=== PATIENT | female | born 1935 | race Caucasian/White ===

== ENCOUNTER 2023-02-22 16:46 | Inpatient (IN) | payer MEDICARE, OTHER ==
[~2023-02-22] VITALS: Ht 162.6 cm; Wt 78.9 kg
[2023-02-22] MEDS ORDERED: HYDRALAZINE (17:10)
[2023-02-22] MEDS ORDERED: NAMENDA (17:10)
[2023-02-22] MEDS ORDERED: LOTREL (17:10)
[2023-02-22] MEDS ORDERED: COREG (17:10)
[2023-02-22] MEDS ORDERED: [UNRECOGNIZED DRUG - CODE] (17:10)
[2023-02-22] MEDS ORDERED: OLME5TAB3 (17:10)
[2023-02-22] MEDS ORDERED: JANUVIA (17:10)
[2023-02-22] MEDS ORDERED: IV NORMAL SALINE 500 ML BAG IV ONE (17:15)
[2023-02-22 17:20] LABS: BASOPHILS # (AUTO) 0.2 K/UL (0.0-0.2); BASOPHILS % (AUTO) 2.3 % (0.0-2.0); EOSINOPHILS % (AUTO) 0.1 % (0.0-7.0); HEMATOCRIT 33.7 % (31.2-41.9); HEMOGLOBIN 11.3 g/dL (10.9-14.3); LYMPHOCYTES # (AUTO) 1.3 K/uL (0.8-4.8); MEAN CORPUSCULAR HEMOGLOBIN 27.4 uug (24.7-32.8); MEAN CORPUSCULAR HGB CONC 33 g/dL (32.3-35.6); MEAN CORPUSCULAR VOLUME 81.9 fL (75.5-95.3); MONOCYTES # (AUTO) 1.4 K/uL (0.1-1.30); NEUTROPHILS # (AUTO) 5.8 K/uL (1.8-8.9); NEUTROPHILS % (AUTO) 66.9 % (38.5-71.5); PLATELET COUNT (AUTO) 381 K/uL (179-408); RED BLOOD CELL COUNT(AUTO) 4.11 MIL/uL (3.63-4.92); RED CELL DISTRIBUTION WIDTH 16.3 % (12.3-17.7); WHITE BLOOD COUNT (AUTO) 8.6 K/uL (3.8-11.8)
[2023-02-22 17:24] LABS: DIFFERENTIAL COMMENT 1
[2023-02-22 17:25] LABS: LYMPHOCYTES % (AUTO) 16.7 % (20.5-51.5)
[2023-02-22 17:31] LABS: CALCIUM 8.7 mg/dL (8.5-10.1); CARBON DIOXIDE 19 mmol/L (21-32); CHLORIDE 88 mmol/L (98-107); CREATININE 4.8 mg/dL (0.6-1.3); GLUCOSE 194 mg/dL (74-106); POTASSIUM 4.5 mmol/L (3.5-5.1); SODIUM SERUM 129 mmol/L (136-145); UREA NITROGEN, BLOOD 64 mg/dL (7-18)
[2023-02-22 17:37] LABS: ALANINE AMINOTRANSFERASE 16 U/L (14-59); ALBUMIN 3.9 g/dL (3.4-5.0); ALKALINE PHOSPHATASE 69 U/L (50-136); ASPARTATE AMINOTRANSFERASE 13 U/L (15-37); BILIRUBIN,DIRECT 0.2 mg/dL (0.0-0.2); BILIRUBIN,TOTAL 0.4 mg/dL (0.2-1.0); TOTAL PROTEIN, SERUM 8.1 g/dL (6.4-8.2)
[2023-02-22] MEDS ORDERED: IV NS 1000 ML 1,000 ML IV ONE (17:45)
[2023-02-22 21:43] VITALS: BP 119/48; TEMP 97.9; O2SAT 96
[2023-02-22] MEDS ORDERED: ONDANSETRON 4 MG/2 ML VIAL IV PRN (22:00)
[2023-02-22] MEDS ORDERED: MORPHINE SULFATE 2 MG/1 ML DISP.SYRIN IV PRN (22:00)
[2023-02-22] MEDS ORDERED: DEXTROSE 50% 50 ML DISP.SYRIN IV PRN (22:00)
[2023-02-22] MEDS ORDERED: ACETAMINOPHEN 650 MG SUPP.RECT RC PRN (22:00)
[2023-02-22] MEDS ORDERED: MAGNESIUM HYDROXIDE 30 ML LIQUID UDC PO PRN (22:00)
[2023-02-22] MEDS: BLOOD SUGAR DIAGNOSTIC 1 EACH STRIP VI SCH (22:48)
[2023-02-22] MEDS: ENOXAPARIN SODIUM 30 MG/0.3 ML DISP.SYRIN SUBCUT SCH (22:53)
[2023-02-22] MEDS: IV NS 1000 ML 1,000 ML IV PRN (22:55)
[2023-02-23 04:40] VITALS: BP 114/49; TEMP 98; O2SAT 94
[2023-02-23] MEDS: BLOOD SUGAR DIAGNOSTIC 1 EACH STRIP VI SCH ×3 (06:10→17:10)
[2023-02-23] MEDS: INSULIN REGULAR, HUMAN 300 UNIT/3 ML VIAL SQ PRN ×3 (06:17→17:11)
[2023-02-23 07:14] LABS: BASOPHILS % (AUTO) 0.1 % (0.0-2.0); HEMATOCRIT 28.5 % (31.2-41.9); HEMOGLOBIN 9.8 g/dL (10.9-14.3); LYMPHOCYTES # (AUTO) 1.3 K/uL (0.8-4.8); LYMPHOCYTES % (AUTO) 15.3 % (20.5-51.5); MEAN CORPUSCULAR HEMOGLOBIN 28.3 uug (24.7-32.8); MEAN CORPUSCULAR HGB CONC 34 g/dL (32.3-35.6); MEAN CORPUSCULAR VOLUME 82.1 fL (75.5-95.3); MONOCYTES # (AUTO) 1.5 K/uL (0.1-1.30); MONOCYTES % (AUTO) 17.1 % (0.0-11.0); NEUTROPHILS % (AUTO) 67.5 % (38.5-71.5); PLATELET COUNT (AUTO) 308 K/uL (179-408); RED BLOOD CELL COUNT(AUTO) 3.47 MIL/uL (3.63-4.92); RED CELL DISTRIBUTION WIDTH 16.3 % (12.3-17.7); WHITE BLOOD COUNT (AUTO) 8.8 K/uL (3.8-11.8)
[2023-02-23 07:20] LABS: CALCIUM 7.6 mg/dL (8.5-10.1); CARBON DIOXIDE 20 mmol/L (21-32); CHLORIDE 94 mmol/L (98-107); CHOLESTEROL 99 mg/dL (<200); CREATININE 4.6 mg/dL (0.6-1.3); GLUCOSE 167 mg/dL (74-106); HDL CHOLESTEROL 39 mg/dL (40-60); MAGNESIUM 1.8 mg/dL (1.8-2.4); POTASSIUM 4.4 mmol/L (3.5-5.1); SODIUM SERUM 133 mmol/L (136-145); TRIGLYCERIDES 166 MG/DL (30-150); UREA NITROGEN, BLOOD 78 mg/dL (7-18)
[2023-02-23 07:23] LABS: DIFFERENTIAL COMMENT 1
[2023-02-23] MEDS: PANTOPRAZOLE SODIUM 40 MG VIAL IV SCH (08:36)
[2023-02-23] MEDS ORDERED: DIATR MEGLU/DIATRIZOATE SODIUM 30 ML BOTTLE ONE (09:12)
[2023-02-23 11:43] VITALS: BP 117/51; TEMP 98.6; O2SAT 95
[2023-02-23 13:58] LABS: BAND % (MANUAL) 3 % (0-10); LYMPHOCYTES % (MANUAL) 17 % (20-40); MONOCYTES % (MANUAL) 18 % (2-10); NEUTROPHILS % (MANUAL) 62 % (42-75); PLATELET ESTIMATE ADEQUATE
[2023-02-23 13:59] LABS: ANISOCYTOSIS 1+
[2023-02-23] MEDS: IV NS 1000 ML 1,000 ML IV PRN (14:05)
[2023-02-23] MEDS ORDERED: CARV6.252 PO (15:26)
[2023-02-23] MEDS ORDERED: MEMA5TAB PO (15:26)
[2023-02-23] MEDS ORDERED: SITA100T PO (15:26)
[2023-02-23] MEDS ORDERED: HYDR-894 PO (15:26)
[2023-02-23] MEDS ORDERED: OLME40TA12 PO (15:26)
[2023-02-23 16:00] VITALS: BP 107/53; TEMP 97.5; O2SAT 94
[2023-02-23 20:00] VITALS: BP 116/46; TEMP 98.9; O2SAT 93
[2023-02-23] MEDS: ENOXAPARIN SODIUM 30 MG/0.3 ML DISP.SYRIN SUBCUT SCH (20:34)
[2023-02-24] MEDS: BLOOD SUGAR DIAGNOSTIC 1 EACH STRIP VI SCH ×5 (02:07→23:29)
[2023-02-24] MEDS: INSULIN REGULAR, HUMAN 300 UNIT/3 ML VIAL SQ PRN ×3 (02:08→17:40)
[2023-02-24 04:00] VITALS: BP 138/61; TEMP 98.4; O2SAT 93
[2023-02-24 07:06] LABS: BASOPHILS % (AUTO) 0.1 % (0.0-2.0); HEMATOCRIT 28.9 % (31.2-41.9); HEMOGLOBIN 9.7 g/dL (10.9-14.3); LYMPHOCYTES # (AUTO) 1.1 K/uL (0.8-4.8); LYMPHOCYTES % (AUTO) 13.9 % (20.5-51.5); MEAN CORPUSCULAR HGB CONC 34 g/dL (32.3-35.6); MEAN CORPUSCULAR VOLUME 83.3 fL (75.5-95.3); MONOCYTES # (AUTO) 1.1 K/uL (0.1-1.30); MONOCYTES % (AUTO) 13.9 % (0.0-11.0); NEUTROPHILS # (AUTO) 5.9 K/uL (1.8-8.9); NEUTROPHILS % (AUTO) 72.1 % (38.5-71.5); PLATELET COUNT (AUTO) 334 K/uL (179-408); RED BLOOD CELL COUNT(AUTO) 3.47 MIL/uL (3.63-4.92); RED CELL DISTRIBUTION WIDTH 16.8 % (12.3-17.7); WHITE BLOOD COUNT (AUTO) 8.2 K/uL (3.8-11.8)
[2023-02-24 07:15] LABS: DIFFERENTIAL COMMENT 1
[2023-02-24 07:32] LABS: CALCIUM 8.5 mg/dL (8.5-10.1); CARBON DIOXIDE 18 mmol/L (21-32); CHLORIDE 101 mmol/L (98-107); CREATININE 3.6 mg/dL (0.6-1.3); GLUCOSE 176 mg/dL (74-106); MAGNESIUM 2.1 mg/dL (1.8-2.4); PHOSPHOROUS 7.2 mg/dL (2.5-4.9); POTASSIUM 3.9 mmol/L (3.5-5.1); SODIUM SERUM 139 mmol/L (136-145)
[2023-02-24 07:34] LABS: UREA NITROGEN, BLOOD 91 mg/dL (7-18)
[2023-02-24] MEDS: IV NS 1000 ML 1,000 ML IV PRN (08:12)
[2023-02-24] MEDS: PANTOPRAZOLE SODIUM 40 MG VIAL IV SCH (09:29)
[2023-02-24 11:38] VITALS: BP 94/55; TEMP 97.9; O2SAT 97
[2023-02-24 16:12] VITALS: BP 132/45; TEMP 99.4; O2SAT 96
[2023-02-24] MEDS: ACETAMINOPHEN 325 MG TABLET PO PRN (18:48)
[2023-02-24] MEDS: ENOXAPARIN SODIUM 30 MG/0.3 ML DISP.SYRIN SUBCUT SCH (21:37)
[2023-02-24] MEDS: SIMETHICONE 80 MG TAB.CHEW PO SCH (21:58)
[2023-02-24 22:20] VITALS: BP 151/57; TEMP 97.9; O2SAT 96
[2023-02-25 04:00] VITALS: BP 152/68; TEMP 98; O2SAT 95
[2023-02-25 06:28] LABS: BASOPHILS % (AUTO) 0.1 % (0.0-2.0); HEMATOCRIT 25.5 % (31.2-41.9); HEMOGLOBIN 8.7 g/dL (10.9-14.3); LYMPHOCYTES # (AUTO) 0.9 K/uL (0.8-4.8); LYMPHOCYTES % (AUTO) 15.6 % (20.5-51.5); MEAN CORPUSCULAR HEMOGLOBIN 28.2 uug (24.7-32.8); MEAN CORPUSCULAR HGB CONC 34 g/dL (32.3-35.6); MEAN CORPUSCULAR VOLUME 82.6 fL (75.5-95.3); MONOCYTES # (AUTO) 0.8 K/uL (0.1-1.30); MONOCYTES % (AUTO) 14.1 % (0.0-11.0); NEUTROPHILS # (AUTO) 4.2 K/uL (1.8-8.9); NEUTROPHILS % (AUTO) 70.2 % (38.5-71.5); PLATELET COUNT (AUTO) 315 K/uL (179-408); RED BLOOD CELL COUNT(AUTO) 3.09 MIL/uL (3.63-4.92); RED CELL DISTRIBUTION WIDTH 16.3 % (12.3-17.7)
[2023-02-25] MEDS: BLOOD SUGAR DIAGNOSTIC 1 EACH STRIP VI SCH ×3 (06:34→18:22)
[2023-02-25 06:46] LABS: DIFFERENTIAL COMMENT 1
[2023-02-25 06:50] LABS: ALANINE AMINOTRANSFERASE 7 U/L (14-59); ALBUMIN 2.8 g/dL (3.4-5.0); ALKALINE PHOSPHATASE 58 U/L (50-136); ASPARTATE AMINOTRANSFERASE < 5 U/L (15-37); BILIRUBIN,TOTAL 0.7 mg/dL (0.2-1.0); CALCIUM 8.9 mg/dL (8.5-10.1); CARBON DIOXIDE 18 mmol/L (21-32); CHLORIDE 100 mmol/L (98-107); CREATINE KINASE, TOTAL 26 U/L (26-192); CREATININE 2.3 mg/dL (0.6-1.3); GLUCOSE 124 mg/dL (74-106); MAGNESIUM 1.9 mg/dL (1.8-2.4); PHOSPHOROUS 5.3 mg/dL (2.5-4.9); POTASSIUM 3.5 mmol/L (3.5-5.1); SODIUM SERUM 133 mmol/L (136-145); TOTAL PROTEIN, SERUM 6.1 g/dL (6.4-8.2); UREA NITROGEN, BLOOD 78 mg/dL (7-18)
[2023-02-25] MEDS: SIMETHICONE 80 MG TAB.CHEW PO SCH ×4 (08:44→20:22)
[2023-02-25] MEDS: PANTOPRAZOLE SODIUM 40 MG VIAL IV SCH (08:45)
[2023-02-25 11:31] VITALS: BP 159/60; TEMP 98.8; O2SAT 96
[2023-02-25] MEDS: INSULIN REGULAR, HUMAN 300 UNIT/3 ML VIAL SQ PRN (12:07)
[2023-02-25] MEDS: IV NS 1000 ML 1,000 ML IV PRN (14:31)
[2023-02-25] MEDS: ACETAMINOPHEN 325 MG TABLET PO PRN (14:50)
[2023-02-25 16:00] VITALS: BP 186/67; TEMP 98.8; O2SAT 96
[2023-02-25] MEDS ORDERED: hydrALAZINE HCL 10 MG TABLET PO SCH (16:30)
[2023-02-25 20:00] VITALS: BP 154/64; TEMP 98.2; O2SAT 96
[2023-02-25] MEDS: ENOXAPARIN SODIUM 30 MG/0.3 ML DISP.SYRIN SUBCUT SCH (20:22)
[2023-02-26] MEDS: BLOOD SUGAR DIAGNOSTIC 1 EACH STRIP VI SCH ×5 (01:38→23:50)
[2023-02-26 04:00] VITALS: BP 146/60; TEMP 98.5; O2SAT 97
[2023-02-26] MEDS: PANTOPRAZOLE SODIUM 40 MG TABLET.DR PO SCH (06:31)
[2023-02-26] MEDS: IV NS 1000 ML 1,000 ML IV PRN ×2 (06:31→22:31)
[2023-02-26 06:37] LABS: BASOPHILS % (AUTO) 0.1 % (0.0-2.0); HEMATOCRIT 25.4 % (31.2-41.9); HEMOGLOBIN 8.7 g/dL (10.9-14.3); LYMPHOCYTES % (AUTO) 18.9 % (20.5-51.5); MEAN CORPUSCULAR HEMOGLOBIN 28.4 uug (24.7-32.8); MEAN CORPUSCULAR HGB CONC 34 g/dL (32.3-35.6); MEAN CORPUSCULAR VOLUME 83.1 fL (75.5-95.3); MONOCYTES # (AUTO) 0.7 K/uL (0.1-1.30); MONOCYTES % (AUTO) 13.1 % (0.0-11.0); NEUTROPHILS # (AUTO) 3.6 K/uL (1.8-8.9); NEUTROPHILS % (AUTO) 67.9 % (38.5-71.5); PLATELET COUNT (AUTO) 287 K/uL (179-408); RED BLOOD CELL COUNT(AUTO) 3.05 MIL/uL (3.63-4.92); RED CELL DISTRIBUTION WIDTH 16.5 % (12.3-17.7); WHITE BLOOD COUNT (AUTO) 5.3 K/uL (3.8-11.8)
[2023-02-26 06:52] LABS: DIFFERENTIAL COMMENT 1
[2023-02-26 07:02] LABS: CALCIUM 8.6 mg/dL (8.5-10.1); CARBON DIOXIDE 21 mmol/L (21-32); CHLORIDE 101 mmol/L (98-107); CREATININE 1.7 mg/dL (0.6-1.3); GLUCOSE 118 mg/dL (74-106); MAGNESIUM 1.7 mg/dL (1.8-2.4); PHOSPHOROUS 3.7 mg/dL (2.5-4.9); POTASSIUM 3.3 mmol/L (3.5-5.1); SODIUM SERUM 132 mmol/L (136-145); UREA NITROGEN, BLOOD 57 mg/dL (7-18)
[2023-02-26] MEDS: SIMETHICONE 80 MG TAB.CHEW PO SCH ×4 (09:16→20:49)
[2023-02-26] MEDS: METOCLOPRAMIDE HCL 10 MG/2 ML VIAL IV SCH ×3 (10:11→21:20)
[2023-02-26] MEDS: INSULIN REGULAR, HUMAN 300 UNIT/3 ML VIAL SQ PRN ×2 (11:44→17:05)
[2023-02-26 12:00] VITALS: BP 145/58; TEMP 98.1; O2SAT 99
[2023-02-26] MEDS ORDERED: MAGNESIUM OXIDE 400 MG TABLET PO ONE (14:15)
[2023-02-26] MEDS ORDERED: POTASSIUM CHLORIDE 10 MEQ TAB.PRT.SR PO ONE (14:30)
[2023-02-26 16:07] VITALS: BP 159/67; TEMP 97.6; O2SAT 98
[2023-02-26 20:00] VITALS: BP 160/57; TEMP 98; O2SAT 98
[2023-02-26] MEDS: ENOXAPARIN SODIUM 30 MG/0.3 ML DISP.SYRIN SUBCUT SCH (20:51)
[2023-02-27 04:00] VITALS: BP 158/54; TEMP 98.5; O2SAT 96
[2023-02-27] MEDS: METOCLOPRAMIDE HCL 10 MG/2 ML VIAL IV SCH ×2 (05:22→14:50)
[2023-02-27] MEDS: BLOOD SUGAR DIAGNOSTIC 1 EACH STRIP VI SCH ×2 (05:29→12:22)
[2023-02-27] MEDS: PANTOPRAZOLE SODIUM 40 MG TABLET.DR PO SCH (06:14)
[2023-02-27 07:06] LABS: PTH, INTACT 53 pg/mL (15-65)
[2023-02-27] MEDS ORDERED: MEMANTINE HCL 5 MG TABLET PO SCH (09:00)
[2023-02-27] MEDS ORDERED: CARVEDILOL 6.25 MG TABLET PO SCH (09:00)
[2023-02-27] MEDS ORDERED: hydrALAZINE HCL 25 MG TABLET PO SCH (09:00)
[2023-02-27] MEDS: SIMETHICONE 80 MG TAB.CHEW PO SCH ×3 (09:15→16:30)
[2023-02-27 09:47] LABS: BASOPHILS % (AUTO) 0.1 % (0.0-2.0); HEMATOCRIT 26.2 % (31.2-41.9); HEMOGLOBIN 8.8 g/dL (10.9-14.3); LYMPHOCYTES # (AUTO) 0.9 K/uL (0.8-4.8); LYMPHOCYTES % (AUTO) 20.7 % (20.5-51.5); MEAN CORPUSCULAR HEMOGLOBIN 27.8 uug (24.7-32.8); MEAN CORPUSCULAR HGB CONC 34 g/dL (32.3-35.6); MEAN CORPUSCULAR VOLUME 82.9 fL (75.5-95.3); MONOCYTES # (AUTO) 0.5 K/uL (0.1-1.30); MONOCYTES % (AUTO) 11.3 % (0.0-11.0); NEUTROPHILS # (AUTO) 2.9 K/uL (1.8-8.9); NEUTROPHILS % (AUTO) 67.9 % (38.5-71.5); PLATELET COUNT (AUTO) 315 K/uL (179-408); RED BLOOD CELL COUNT(AUTO) 3.16 MIL/uL (3.63-4.92); RED CELL DISTRIBUTION WIDTH 16.2 % (12.3-17.7); WHITE BLOOD COUNT (AUTO) 4.3 K/uL (3.8-11.8)
[2023-02-27 09:51] LABS: DIFFERENTIAL COMMENT 1
[2023-02-27 09:55] LABS: CALCIUM 8.6 mg/dL (8.5-10.1); CARBON DIOXIDE 22 mmol/L (21-32); CHLORIDE 101 mmol/L (98-107); CREATININE 1.3 mg/dL (0.6-1.3); GLUCOSE 127 mg/dL (74-106); POTASSIUM 3.2 mmol/L (3.5-5.1); SODIUM SERUM 133 mmol/L (136-145); UREA NITROGEN, BLOOD 37 mg/dL (7-18)
[2023-02-27 10:37] VITALS: BP 139/52; O2SAT 95
[2023-02-27] MEDS ORDERED: METO-295 PO (10:43)
[2023-02-27 11:55] VITALS: BP_SYST 119; BP_SYST 139; BP_DIAS 52; BP_DIAS 56; TEMP 98.2; O2SAT 97
[2023-02-27 12:01] VITALS: BP 139/52; TEMP 98.2; O2SAT 97
[2023-02-27] MEDS: INSULIN REGULAR, HUMAN 300 UNIT/3 ML VIAL SQ PRN (12:29)
[2023-02-27 16:21] VITALS: BP 118/73; TEMP 98.6; O2SAT 96
[2023-02-27] MEDS ORDERED: GLUCERNA SHAKE 237 ML CAN PO SCH (17:00)
[2023-02-27] MEDS ORDERED: METOCLOPRAMIDE HCL 10 MG TABLET PO SCH (22:00)
[2023-02-28 05:07] LABS: A/G RATIO 0.9 (0.7-1.7); ALBUMIN 2.7 g/dL (2.9-4.4); ALPHA-1-GLOBULIN 0.4 g/dL (0.0-0.4); ALPHA-2-GLOBULIN 1.1 g/dL (0.4-1.0); BETA GLOBULIN 0.7 g/dL (0.7-1.3); GAMMA GLOBULIN 0.9 g/dL (0.4-1.8); M-SPIKE Not Observed g/dL (Not Observed)
== END 2023-02-27 17:00 | disposition home health service (06) | DRG 388 ==
LOC: ER 16:48 → MEDSURG3 20:44
PROVIDERS: ADMIT Nurse Practitioner Acute Care; ATTEND Nurse Practitioner Acute Care
DX: K56.609 Unspecified intestinal obstruction, unspecified as to partial versus complete obstruction (principal); N17.0 Acute kidney failure with tubular necrosis; E87.1 Hypo-osmolality and hyponatremia; E87.20 Acidosis, unspecified; M48.56XA Collapsed vertebra, not elsewhere classified, lumbar region, initial encounter for fracture; C79.51 Secondary malignant neoplasm of bone; K55.9 Vascular disorder of intestine, unspecified; E86.1 Hypovolemia; Z95.0 Presence of cardiac pacemaker; C80.1 Malignant (primary) neoplasm, unspecified; Q78.9 Osteochondrodysplasia, unspecified; E11.22 Type 2 diabetes mellitus with diabetic chronic kidney disease; I12.9 Hypertensive chronic kidney disease with stage 1 through stage 4 chronic kidney disease, or unspecified chronic kidney disease; N18.9 Chronic kidney disease, unspecified; Z79.84 Long term (current) use of oral hypoglycemic drugs; E87.6 Hypokalemia; E27.8 Other specified disorders of adrenal gland; Z79.899 Other long term (current) drug therapy; Z91.198 Patient's noncompliance with other medical treatment and regimen for other reason
CPT/HCPCS: 36415; 70030-TC; 71045; 74018; 74250; 83605; 83735; 83970; 84100; 84155; 84165; 85025; 93005; A4606; A4663; C1758; C9113; G0378; J1650; J1815; J2405; J2765; J7040; Q9963